=== PATIENT | female | born 1975 ===

== ENCOUNTER 2019-07-19 07:31 | Inpatient (IN) | payer OTHER ==
[2019-07-19] MEDS: ELECTROLYTE-148 SOLN 1,000 ML IV SCH (08:34)
[2019-07-19] MEDS ORDERED: FENTANYL/BUPIVACAINE/NS/PF - PCEA - 50 ML DISP.SYRIN EP ONE ×2 (08:36→12:49)
[2019-07-19 08:39] LABS: BASO % 0.3 % (0-2.0); EOS % 1.6 % (0-4.5); HEMATOCRIT 33.8 % (32.4-45.2); HEMOGLOBIN 11.1 GM/dL (10.7-15.3); LYMPH % 31.3 % (8-40); MCH 26.2 pg (25.7-33.7); MCHC 32.8 g/dl (32.0-36.0); MEAN CELL VOLUME 79.8 fl (80-96); MEAN PLT VOLUME 8.3 fl (7.5-11.1); MONO % 8.7 % (3.8-10.2); NEUT % 58.1 % (42.8-82.8); PLATELET COUNT 266 K/MM3 (134-434); RBC 4.23 M/mm3 (3.60-5.2); RDW 15.6 % (11.6-15.6); WHITE BLOOD COUNT 11.8 K/mm3 (4.0-10.0)
[2019-07-19 08:54] VITALS: BMI 39.6
[2019-07-19] MEDS ORDERED: NALOXONE HCL 0.4 MG/ML VIAL IVPUSH PRN (08:57)
[2019-07-19] MEDS ORDERED: LIDO 2%/EPI 1:200000 PRESRVFRE (20 ML SDVIAL) ONE (08:58)
[2019-07-19] MEDS ORDERED: FENTANYL/BUPIVACAINE/NS/PF - PCEA - 50 ML DISP.SYRIN EP SCH (09:00)
[2019-07-19 09:14] LABS: BLOOD UREA NITROGEN 14.7 mg/dL (7-18); CALCIUM 9.3 mg/dL (8.5-10.1); CREATININE 0.7 mg/dL (0.55-1.3)
[2019-07-19 09:31] LABS: INR 0.92 (0.83-1.09); PROTHROMBIN TIME (PATIENT) 10.8 SEC (9.7-13.0)
[2019-07-19 09:34] LABS: ACTIVATED PTT 27.2 SECONDS (25.2-36.5)
--- NOTE | 2019-07-19 10:53 | HP ---
Past Medical History - Admission Chief Complaint: active labor History of Present Illness: active labor History Source: Patient Limitations to Obtaining History: No Limitations - Past Medical History FURNACE FITTER: No: Alzheimer's, CVA, Dementia, Migraine, Multiple Sclerosis, Peripheral Neuropathy, Parkinson's, Seizure, Syncope, TIA, Vertigo, Other Cardiovascular: No: AFIB, Aneurysm, Aortic Insufficiency, Aortic Stenosis, CAD, CHF, Deep Vein Thrombosis, HTN, Hyperlipdemia, TN, Mitral Insufficiency, Mitral Stenosis, Murmur, Pulmonary Hypertension, Other Pulmonary: No: Asthma, Bronchitis, Cancer, COPD, O2 Dependent, Pneumonia, Previously Intubated, Pulmonary Embolus, Pulmonary Fibrosis, Sleep Apnea, Other Gastrointestinal: No: Ascites, Cancer, Constipation, Crohn's Disease, Diverticulitis, Diverticulosis, Esophageal Varices, Gastritis, GERD, GI Bleed, Hemorrhoids, Hiatal Hernia, Inflamatory Bowel Disease, Irritable Bowel Disease, Pancreatitis, Peptic Ulcer Disease, Ulcerative Colitis, Other Hepatobiliary: No: Cirrhosis, Cholelithiasis, Cholecystitis, Choledocholithiasis , Hepatitis A, Hepatitis B, Hepatitis C, Other Renal/: No: Renal Failure, Renal Inusuff, BPH, Cancer, Hematuria, Hemodialysis , Neurogenic Bladder, Renal Calculi, UTI, Other Reproductive: No: Ectopic , Endometriosis, Fibroids, PID, Polycystic Ovary Syndrome, Postmenopausal, Other ...: 6 ...Para: 2 ...Term: 2 ...: 2 ...Spon : 1 ...LMP: 10/10/18 ... Weeks Gestation by Dates: 40.3 ...EDC by Dates: 07/16/19 ...EDC by Sono: 07/16/19 Additional OB History: pubb during early Heme/Onc: No: Anemia, B12 Deficiency, Bleeding Disorder, Cancer, Current Chemotherapy, Current Radiation Therapy, Hemochromatosis, Hypercoaguable State, Myeloproliferative Synd, Sickle Cell Disease, Sickle Cell Trait, Thrombocytopenia, Other Infectious Disease: No: AIDS, C-Diff, Herpes Zoster, HIV, MRSA, STD's, Tuberculosis, VREF, Other Psych: No: Addictions, Anxiety, Bipolar, Depression, Panic, Psychosis, Schizophrenia, Other Musculoskeletal: No: Bursitis, Chronic low back pain, Hemiparesis, Hemiplegia, Osteoarthritis, Paraplegia, Other Rheumatology: No: Fibromyalgia, Gout, Lupus, Rheumatoid Arthritis, Sarcoidosis, Vasculitis, Other ENT: No: Allergic Rhinitis, Sinusitis, Other Endocrine: No: Hiram's Disease, Juancarlos's Disease, Diabetes Insipidus, Diabetes Mellitus, Hyperparathyroidism, Hyperthyroidism, Hypothyroidism, Osteopenia, SIADH, Other Dermatology: No: Basal Cell, Cellulitis, Eczema, Melanoma, Psoriasis, Squamous Cell, Other - Past Surgical History Past Surgical History: No: None, AAA Repair, AICD, Amputation, Appendectomy, Arthrosocopy, AV Fistula/Graft, Bariatric Surgery, Breast Biopsy, Bypass, CABG, Carotid Endarterectomy, Cataract Removal, Cholecystectomy, Colectomy, Colonoscopy, Colostomy, Craniotomy, , Cystectomy, Hernia Repair, Hysterectomy, Ileal Conduit, Ileosotomy, Joint Replacement, Kidney Transplant, Laminectomy, Liver Transplant, Mastectomy, Nephrectomy, Oopherectomy, Orchiectomy, Permanent Pacemaker, Prostatectomy, Splenectomy, Stent, Thoracotomy , TURP, Tonsillectomy, Tubal Ligation, Upper Endoscopy, Valve Replacement, Vasectomy, Vein Stripping/Ligation Hx Myomectomy: No Hx Transabdominal Cerclage: No - Advance Directives Advance Directives: Yes: Living Will - Smoking History Smoking history: Never smoked Have you smoked in the past 12 months: No - Alcohol/Substance Use Hx Alcohol Use: No History of Substance Use: reports: None - Social History Usual Living Arrangement: Yes: With Spouse ADL: Independent History of Recent Travel: No Home Medications - Allergies Allergies/Adverse Reactions: Allergies Allergy/AdvReac Type Severity Reaction Status Date / Time No Known Allergies Allergy Verified 07/19/19 08:03 - Home Medications Home Medications: Ambulatory Orders Vitamins (Sjr) - 1 tab PO DAILY 07/19/19 Family Disease History - Family Disease History Family History: Denies Review of Systems - Review of Systems Constitutional: reports: No Symptoms Eyes: reports: No Symptoms HENT: reports: No Symptoms Neck: reports: No Symptoms Cardiovascular: reports: No Symptoms Respiratory: reports: No Symptoms Gastrointestinal: reports: No Symptoms Genitourinary: reports: No Symptoms Breasts: reports: No Symptoms Reported Musculoskeletal: reports: No Symptoms Integumentary: reports: No Symptoms Neurological: reports: No Symptoms Endocrine: reports: No Symptoms Hematology/Lymphatic: reports: No Symptoms Psychiatric: reports: No Symptoms Physical Exam - Maternity Vital Signs: Vital Signs Temperature 98.8 F 07/19/19 10:00 Pulse Rate 63 07/19/19 10:05 Respiratory Rate 20 07/19/19 10:05 Blood Pressure 123/62 07/19/19 10:05 O2 Sat by Pulse Oximetry (%) 98 07/19/19 10:05 Constitutional: Yes: Well Nourished, No Distress, Calm Eyes: Yes: WNL, Conjunctiva Clear, EOM Intact HENT: Yes: WNL, Atraumatic, Normocephalic Neck: Yes: WNL, Supple, Trachea Midline Cardiovascular: Yes: WNL, Regular Rate and Rhythm Lungs: Clear to auscultation Breast(s): Yes: WNL - Abdominal Exam/OB Fundal Height: 42 Number of Fetuses: Single Presentation: Vertex Contractions: Yes Regularity: Regular Intensity: Moderate Monitor Mode: External Heart Rate Location: [facility] Category: I Accelerations: Uniform Decelerations: None - Vaginal Exam/OB Vaginal Bleediing: No Speculum Exam: No Dilatation (cm): 3 Effacement (%): 70 Amniotic Membrane Status: Intact Presentation: Vertex/Position Station: -2 - Physical Exam Musculoskeletal: Yes: WNL Extremities: Yes: WNL Edema: Yes Edema: LUE: 1+, RUE: 1+, LLE: 1+, RLE: 1+ Integumentary: Yes: WNL Deep Tendon Reflex Grade: Normal +2 ...Motor Strength: WNL Psychiatric: Yes: WNL, Alert, Oriented - Labs Lab Results: CBC, BMP 07/19/19 08:18 07/19/19 08:18 Assessment/Plan requesting epidural, continue laboring
--- NOTE | 2019-07-19 10:55 | PN ---
Progress Note (short form) - Note Progress Note: 935 am 6 cm, arom after epidural, thick meconium, 80%, -2 , uc q 3 min
--- NOTE | 2019-07-19 10:57 | PN ---
Progress Note (short form) - Note Progress Note: 1035 am 6cm, -2 still, 80%, uc q 3 min, continue laboring , comfort w epidural
[2019-07-19] MEDS ORDERED: IBUPROFEN 800 MG/8 ML IJ IVPB PRN (13:15)
[2019-07-19] MEDS ORDERED: OXYTOCIN 20 UNITS in 0.9% NS 20 UNIT/1,000 ML INFUS.BAG IV SCH (13:15)
[2019-07-19] MEDS ORDERED: oxyCODONE HCL 5 MG TABLET PO PRN ×2 (13:15)
[2019-07-19] MEDS ORDERED: METHYLERGONOVINE MALEATE 0.2 MG/1 ML AMP IM PRN (13:15)
[2019-07-19] MEDS ORDERED: OXYTOCIN 20 UNITS in 0.9% NS 20 UNIT/1,000 ML INFUS.BAG IV ONE ×2 (13:17→13:38)
--- NOTE | 2019-07-19 13:22 | PN ---
Progress Note (short form) - Note Progress Note: 115 pm, cervix is still 6-cm , -2, 80%, high station, some variable deccels , will proceed to c s to prevent shpulder dystocia, large baby expected, ft progress
[2019-07-19] MEDS ORDERED: ceFAZolin SODIUM 1 GM VIAL ONE (13:49)
[2019-07-19] MEDS ORDERED: OXYTOCIN 10 UNITS/ML VIAL ONE (14:01)
[2019-07-19] MEDS ORDERED: KETOROLAC TROMETHAMINE 30 MG/1 ML VIAL ONE (14:33)
[2019-07-19] MEDS ORDERED: ONDANSETRON 4 MG/2 ML VIAL IVPUSH PRN (15:13)
[2019-07-19] MEDS ORDERED: ACETAMINOPHEN 1000 MG/100 ML VIAL (NON FORMULARY) IVPB ONE (16:00)
[2019-07-19] MEDS ORDERED: ACETAMINOPHEN INJECTION 100 ML IVPB ONE (16:08)
[2019-07-20 08:01] LABS: BASO % 0.4 % (0-2.0); EOS % 1.2 % (0-4.5); HEMATOCRIT 29.4 % (32.4-45.2); HEMOGLOBIN 9.5 GM/dL (10.7-15.3); LYMPH % 18.2 % (8-40); MCH 26.2 pg (25.7-33.7); MCHC 32.2 g/dl (32.0-36.0); MEAN CELL VOLUME 81.5 fl (80-96); MEAN PLT VOLUME 8.3 fl (7.5-11.1); MONO % 9.8 % (3.8-10.2); NEUT % 70.4 % (42.8-82.8); PLATELET COUNT 203 K/MM3 (134-434); RBC 3.61 M/mm3 (3.60-5.2); RDW 15.7 % (11.6-15.6); WHITE BLOOD COUNT 12.7 K/mm3 (4.0-10.0)
[2019-07-20] MEDS: ACETAMINOPHEN 325 MG TABLET (FP) PO PRN ×3 (09:08→21:23)
[2019-07-20] MEDS: SIMETHICONE 80 MG TAB.CHEW (FP) PO PRN ×3 (09:08→21:24)
[2019-07-20] MEDS: IBUPROFEN 600 MG TABLET (FP) PO PRN ×3 (09:09→21:23)
[2019-07-20] MEDS: ENOXAPARIN NA (PORCINE) 40 MG/0.4 ML DISP.SYRIN SQ SCH (09:10)
[2019-07-20] MEDS: ELECTROLYTE-148 SOLN 1,000 ML IV SCH (10:45)
--- NOTE | 2019-07-20 10:47 | PN ---
Progress Note (short form) - Note Progress Note: Post op day#1.S/P C Section under spinal with duramorph uneventful.Patient stable and has little pain for which she is on medication.No any anesthesia related problem.Patient Dc from the anesthesia care.
[2019-07-20] MEDS ORDERED: BISACODYL 10 MG SUPP.RECT RC PRN (13:16)
--- NOTE | 2019-07-20 20:38 | OP ---
Operative Note - Note: Operative Date: 07/19/19 Pre-Operative Diagnosis: f t progress, non reassuring fht, thick meconium , post date , macrosomia Operation: primary lt c s Findings: thick meconium , macrosomia , Post-Operative Diagnosis: Same as Pre-op Surgeon: Darryn Schroeder Substation Electrician Supervisor: Jaskaran Macdonald Anesthesiologist/DEPARTMENT STORE MANAGER: Desiree Álvarez Anesthesia: Epidural Estimated Blood Loss (mls): 600 Operative Report Dictated: Yes
--- NOTE | 2019-07-20 20:39 | PN ---
Post Progress Note Post Day: 1 Type of Delivery: Primary C/S Vital Signs: Vital Signs Temperature 98.3 F 07/20/19 09:57 Pulse Rate 69 07/20/19 09:57 Respiratory Rate 18 07/20/19 16:00 Blood Pressure 126/65 07/20/19 09:57 O2 Sat by Pulse Oximetry (%) 96 07/19/19 13:35 Breast Exam: Yes: Soft Uterus: Yes: Fundus Firm, Fundus below umbilicus Incision: Yes: Dressing dry and intact, Sutures intact Abdomen/GI: Yes: Abdomen soft, Passing flatus, Tolerating PO Lochia: Yes: Serosa Lochia, amount: Small Extremities: Yes: Calves non-tender Activity: Ambulating - Labs Labs: CBC WBC 12.7 K/mm3 (4.0-10.0) H 07/20/19 06:55 RBC 3.61 M/mm3 (3.60-5.2) 07/20/19 06:55 Hgb 9.5 GM/dL (10.7-15.3) L 07/20/19 06:55 Hct 29.4 % (32.4-45.2) L 07/20/19 06:55 MCV 81.5 fl (80-96) 07/20/19 06:55 MCH 26.2 pg (25.7-33.7) 07/20/19 06:55 MCHC 32.2 g/dl (32.0-36.0) 07/20/19 06:55 RDW 15.7 % (11.6-15.6) H 07/20/19 06:55 Plt Count 203 K/MM3 (134-434) D 07/20/19 06:55 MPV 8.3 fl (7.5-11.1) 07/20/19 06:55 Absolute Neuts (auto) 8.9 K/mm3 (1.5-8.0) H 07/20/19 06:55 Neutrophils % 70.4 % (42.8-82.8) D 07/20/19 06:55 Lymphocytes % 18.2 % (8-40) D 07/20/19 06:55 Monocytes % 9.8 % (3.8-10.2) 07/20/19 06:55 Eosinophils % 1.2 % (0-4.5) 07/20/19 06:55 Basophils % 0.4 % (0-2.0) 07/20/19 06:55 Nucleated RBC % 0 % (0-0) 07/20/19 06:55 Assessment/Plan regular diet
[2019-07-21] MEDS: SIMETHICONE 80 MG TAB.CHEW (FP) PO PRN ×3 (03:23→14:35)
[2019-07-21] MEDS: IBUPROFEN 600 MG TABLET (FP) PO PRN ×4 (03:23→22:18)
[2019-07-21] MEDS: ACETAMINOPHEN 325 MG TABLET (FP) PO PRN ×4 (03:23→22:18)
[2019-07-21] MEDS: ENOXAPARIN NA (PORCINE) 40 MG/0.4 ML DISP.SYRIN SQ SCH (10:22)
--- NOTE | 2019-07-21 21:12 | PN ---
Post Progress Note Type of Delivery: Primary C/S Vital Signs: Vital Signs Temperature 98.2 F 07/21/19 10:00 Pulse Rate 65 07/21/19 10:00 Respiratory Rate 20 07/21/19 10:00 Blood Pressure 142/76 07/21/19 10:00 O2 Sat by Pulse Oximetry (%) 96 07/19/19 13:35 Uterus: Yes: Fundus Firm Incision: Yes: Dressing dry and intact, Sutures intact Abdomen/GI: Yes: Abdomen soft, Passing flatus, Tolerating PO Lochia: Yes: Serosa Lochia, amount: Small Extremities: Yes: Calves non-tender Perineum: Yes: Intact Activity: Ambulating - Labs Labs: CBC WBC 12.7 K/mm3 (4.0-10.0) H 07/20/19 06:55 RBC 3.61 M/mm3 (3.60-5.2) 07/20/19 06:55 Hgb 9.5 GM/dL (10.7-15.3) L 07/20/19 06:55 Hct 29.4 % (32.4-45.2) L 07/20/19 06:55 MCV 81.5 fl (80-96) 07/20/19 06:55 MCH 26.2 pg (25.7-33.7) 07/20/19 06:55 MCHC 32.2 g/dl (32.0-36.0) 07/20/19 06:55 RDW 15.7 % (11.6-15.6) H 07/20/19 06:55 Plt Count 203 K/MM3 (134-434) D 07/20/19 06:55 MPV 8.3 fl (7.5-11.1) 07/20/19 06:55 Absolute Neuts (auto) 8.9 K/mm3 (1.5-8.0) H 07/20/19 06:55 Neutrophils % 70.4 % (42.8-82.8) D 07/20/19 06:55 Lymphocytes % 18.2 % (8-40) D 07/20/19 06:55 Monocytes % 9.8 % (3.8-10.2) 07/20/19 06:55 Eosinophils % 1.2 % (0-4.5) 07/20/19 06:55 Basophils % 0.4 % (0-2.0) 07/20/19 06:55 Nucleated RBC % 0 % (0-0) 07/20/19 06:55 Assessment/Plan dc tp home tomorrow
--- NOTE | 2019-07-21 21:13 | DS ---
Physical Exam-RISK ASSESSOR Vital Signs: Vital Signs Temperature 98.2 F 07/21/19 10:00 Pulse Rate 65 07/21/19 10:00 Respiratory Rate 20 07/21/19 10:00 Blood Pressure 142/76 07/21/19 10:00 O2 Sat by Pulse Oximetry (%) 96 07/19/19 13:35 Constitutional: Yes: Well Nourished, No Distress, Calm Eyes: Yes: WNL, Conjunctiva Clear, EOM Intact HENT: Yes: WNL, Atraumatic, Normocephalic Neck: Yes: WNL, Supple, Trachea Midline Cardiovascular: Yes: WNL, Regular Rate and Rhythm Respiratory: Yes: WNL, Regular, CTA Bilaterally Gastrointestinal: Yes: WNL, Normal Bowel Sounds, Soft ...Rectal Exam: Yes: WNL Renal/: Yes: WNL Pelvis: Yes: WNL External Genitalia: Yes: Normal Internal Exam Deferred: No Vaginal Exam: Yes: Normal Cervix: Yes: Normal Uterus: Yes: Normal Adnexa: Normal: Bilateral ....Post : Yes: Uterus firm, Uterus non-tender Breast(s): Yes: WNL Musculoskeletal: Yes: WNL Extremities: Yes: WNL Integumentary: Yes: WNL Wound/Incision: Yes: Clean/Dry, Well Approximated Neurological: Yes: WNL, Alert, Oriented ...Motor Strength: WNL Psychiatric: Yes: WNL, Alert, Oriented Labs: CBC, BMP 07/20/19 06:55 07/19/19 08:18 Delivery - Delivery Type of Anesthesia: Epidural Episiotomy/Laceration: None EBL (cc): 600 Delivery, Single - Stages of Labor Date 1st Stage Initiatied: 07/19/19 Time 1st Stage Initiated: 05:30 Date of Delivery: 07/19/19 Time of Delivery: 14:00 Time Placenta Delivered: 14:02 - Condition of Ice Crusher/Epic Ambulatory Analyst Present: Yes Name: Jeannette Payne Infant Gender: Male Weight: 4.224 kg Position: Right, OT Total Hours ROM (Hrs/Mins): 4hrs. 40min - 1 Minute Total Score: 9 5 Minutes Total Score: 9 - Baudette Feeding Plan Initial Plan: Elected not to breastfeed exclusively throughout hospitalization Discharge Summary Reason For Visit: LABOR Condition: Good - Instructions Diet, Activity, Other Instructions: regular Disposition: HOME - Home Medications Comprehensive Discharge Medication List: Ambulatory Orders Vitamins (Sjr) - 1 tab PO DAILY 07/19/19
--- NOTE | 2019-07-21 21:18 | PN ---
Post Progress Note Post Day: 2 Type of Delivery: Primary C/S Vital Signs: Vital Signs Temperature 98.2 F 07/21/19 10:00 Pulse Rate 65 07/21/19 10:00 Respiratory Rate 20 07/21/19 10:00 Blood Pressure 142/76 07/21/19 10:00 O2 Sat by Pulse Oximetry (%) 96 07/19/19 13:35 Breast Exam: Yes: Soft Uterus: Yes: Fundus Firm, Fundus below umbilicus Incision: Yes: Dressing dry and intact, Sutures intact - Labs Labs: CBC WBC 12.7 K/mm3 (4.0-10.0) H 07/20/19 06:55 RBC 3.61 M/mm3 (3.60-5.2) 07/20/19 06:55 Hgb 9.5 GM/dL (10.7-15.3) L 07/20/19 06:55 Hct 29.4 % (32.4-45.2) L 07/20/19 06:55 MCV 81.5 fl (80-96) 07/20/19 06:55 MCH 26.2 pg (25.7-33.7) 07/20/19 06:55 MCHC 32.2 g/dl (32.0-36.0) 07/20/19 06:55 RDW 15.7 % (11.6-15.6) H 07/20/19 06:55 Plt Count 203 K/MM3 (134-434) D 07/20/19 06:55 MPV 8.3 fl (7.5-11.1) 07/20/19 06:55 Absolute Neuts (auto) 8.9 K/mm3 (1.5-8.0) H 07/20/19 06:55 Neutrophils % 70.4 % (42.8-82.8) D 07/20/19 06:55 Lymphocytes % 18.2 % (8-40) D 07/20/19 06:55 Monocytes % 9.8 % (3.8-10.2) 07/20/19 06:55 Eosinophils % 1.2 % (0-4.5) 07/20/19 06:55 Basophils % 0.4 % (0-2.0) 07/20/19 06:55 Nucleated RBC % 0 % (0-0) 07/20/19 06:55
--- NOTE | 2019-07-22 02:21 | OP ---
DATE OF OPERATION: 07/20/2019 PREOPERATIVE DIAGNOSIS: Failure to progress, nonreassuring heart rate tracing, macrosomia, thick meconium. POSTOPERATIVE DIAGNOSIS: Failure to progress, nonreassuring heart rate tracing, macrosomia, thick meconium. PROCEDURE: Primary low transverse section. SURGEON: Darryn Schroeder MD NONPROFIT DIRECTOR: MAISHA Cui ANESTHESIA: Spinal. ANESTHESIOLOGIST: Desiree Álvarez MD BLOOD LOSS: About 600 mL. SPECIMEN: Placenta to Pathology. INDICATIONS: This is a 43-year-old female patient, 40 weeks 5 days , who came to the hospital in active labor. Patient came in at 2-3 cm, progressed to 6 cm. Patient was at 6 cm for more than 4 hours and the patient had a thick meconium. The patient also had epidural anesthesia already; however, the patient has persistent variable and some late decelerations. With being 6 cm and the baby head still at -3 or -4 position, high, the baby was known to be just about 9 pounds estimated weight, macrosomia was entertained. With the above indications, the patient was taken to the OR for primary low transverse section. DESCRIPTION OF PROCEDURE: Patient was placed on the operating table in the supine position. Patient already had an epidural and it was re-topped off. Using a Pfannenstiel incision, incision was made through the skin and subcutaneous tissue until the fascia. It was nicked in the midline and the fascia was extended bilaterally until the peritoneal cavity was entered. Bladder flap was not created. A low transverse segment of the uterus was entered. Baby delivered from the LOP position. Baby was handed to the awaiting architect internship after the umbilical cord was doubly clamped and cut. Cord blood gas was obtained. Placenta was removed. Uterus was closed in a single layer with interlocking Vicryl suture with good hemostasis. Both gutters were cleaned. Both ovaries, fallopian tubes, and ureters were within normal limits. No complications. Patient tolerated the procedure well. Both gutters were cleaned. Good hemostasis. Draining clear urine. Blood loss was about 600 mL. The bladder flap was closed. Peritoneum was closed. Fascia was closed. Skin was closed. Transferred back to the recovery room in stable condition. MD MIGUEL PIERCE/[id number]
[2019-07-22] MEDS: IBUPROFEN 600 MG TABLET (FP) PO PRN ×3 (04:02→12:36)
[2019-07-22] MEDS: ACETAMINOPHEN 325 MG TABLET (FP) PO PRN ×3 (04:03→12:37)
[2019-07-22] MEDS: SIMETHICONE 80 MG TAB.CHEW (FP) PO PRN ×3 (04:03→12:36)
[2019-07-22 08:34] LABS: BASO % 0.4 % (0-2.0); EOS % 3.8 % (0-4.5); HEMATOCRIT 25.6 % (32.4-45.2); HEMOGLOBIN 8.4 GM/dL (10.7-15.3); LYMPH % 29.4 % (8-40); MCH 26.4 pg (25.7-33.7); MCHC 32.6 g/dl (32.0-36.0); MEAN PLT VOLUME 8.3 fl (7.5-11.1); MONO % 8.5 % (3.8-10.2); NEUT % 57.9 % (42.8-82.8); PLATELET COUNT 239 K/MM3 (134-434); RBC 3.16 M/mm3 (3.60-5.2); RDW 15.5 % (11.6-15.6); WHITE BLOOD COUNT 9.3 K/mm3 (4.0-10.0)
[2019-07-22] MEDS: ENOXAPARIN NA (PORCINE) 40 MG/0.4 ML DISP.SYRIN SQ SCH (09:33)
[2019-07-22] MEDS ORDERED: DIPHTH,PERTUSS(ACELL),TET 0.5 ML DISP.SYRIN IM ONE (10:00)
[2019-07-22 10:21] VITALS: PULSE 58; TEMP 97.9
[2019-07-22 12:06] VITALS: BP 135/73
--- NOTE | 2019-07-22 18:37 | PATH ---
Surgical Pathology Report Patient Name: JACOBO CURIEL [facility]. Rec. #: [id number] /Age/Gender: 1975 (Age: 43) / F Account: [id number] Location: [facility] OBS/GLASS CARRIER Taken: 07/19/2019 Received: 07/20/2019 Reported: 07/22/2019 Physicians: Darryn Schroeder MD Specimen(s) Received A: PLACENTA B: RIGHT PORTION FALLOPIAN TUBE C: LEFT PORTION FALLOPIAN TUBE Clinical History , 40.3 GW, primary C/S for nonreassuring FH Final Diagnosis A. PLACENTA, SECTION: 862 G THIRD TRIMESTER PLACENTA WITH TRIVASCULAR UMBILICAL CORD AND PLACENTAL MEMBRANES WITH MECONIUM-LADEN MACROPHAGES. B. FALLOPIAN TUBE, PORTION, RIGHT, PARTIAL EXCISION: FULL LUMINAL PORTION OF UNREMARKABLE FALLOPIAN TUBE. C. FALLOPIAN TUBE, PORTION, LEFT, PARTIAL EXCISION: FULL LUMINAL PORTION OF UNREMARKABLE FALLOPIAN TUBE. Electronically Signed Ashley Garcia M.D. Gross Description A. The specimen is received fresh labeled placenta and is a 862 gram, 19 x 17 x 3 cm. placenta with attached membranes and umbilical cord. The attached membranes are green/meconium stained and insert marginally. The umbilical cord measures 54 cm. in length and averages 2 cm. in diameter. The cord inserts eccentrically, 5 cm. to the nearest margin and show focal edematous changes. No true knots or strictures are identified. Cut surface of the umbilical cord reveals 3 vessels. The surface is shaw-blue with minimal fibrin deposition and appropriate caliber vessels. The maternal surface is red-brown with focal defects. Sectioning reveals red-brown, spongy parenchyma. No lesions are identified. Correctional Substance Abuse Counselor sections are submitted in three cassettes as follows: 1- membrane rolls and umbilical cord; 2-3- full thickness sections of placenta. B. Received in formalin labeled "right portion of fallopian tube" is 2.5 cm in length portion of fallopian tube. The outer surface is fuller-birch. Sectioning reveals an unremarkable lumen. Entire specimen is submitted in 1 cassette. C. Received in formalin labeled "left portion of fallopian tube" is 2.5 cm in length portion of fallopian tube. The outer surface is fuller-birch. Sectioning reveals an unremarkable lumen. Entire specimen is submitted in 1 cassette. MLSZ/07/21/2019 sanml/07/21/2019
== END 2019-07-22 14:00 | disposition home or self-care (01) | DRG 788 ==
LOC: JLDR 07:31 → J3W 16:40
PROVIDERS: ADMIT Obstetrics & Gynecology; ATTEND Obstetrics & Gynecology
PROC: 10D00Z1 Extraction of Products of Conception, Low, Open Approach (ICD-10-PCS; principal; 2019-07-19)
DX: O48.0 Post-term pregnancy (principal); O36.63X0 Maternal care for excessive fetal growth, third trimester, not applicable or unspecified; O76 Abnormality in fetal heart rate and rhythm complicating labor and delivery; O77.0 Labor and delivery complicated by meconium in amniotic fluid; Z3A.40 40 weeks gestation of pregnancy; Z37.0 Single live birth
CPT/HCPCS: 36415; 80048; 85025; 85610; 85730; 86593; 86850; 86900; 86901; 87389; 88302-TC; 88307-TC; 90715; J0131